=== PATIENT | female | born 1945 | race Caucasian/White ===

== ENCOUNTER → 2020-07-22 | Outpatient (CLI) | payer OTHER ==
[~2020-07-22] MED LIST: ACCOLATE20 MG PO; ALBUTEROL SULF8.5 GM; CARVEDILOL12.5 MG PO; COUMADIN5 MG PO; FERROUS SULFAT325 MG PO; FOLIC ACID1 MG PO; FUROSEMIDE20 MG PO; LEVOTHROID25 MCG PO; NEURONTIN300 MG PO; NEXIUM40 MG PO; PRAVACHOL20 MG PO; PREDNISONE5 MG PO; PRINIVIL20 MG PO; SPIRIVA18 MCG; SYMBICORT 16010.2 GM; ULTRAM50 MG PO; ZANAFLEX4 M1 PO
== END ==
LOC: MAMMO 08:19
PROVIDERS: ATTEND Internal Medicine
DX: Z12.31 Encounter for screening mammogram for malignant neoplasm of breast (principal)
CPT/HCPCS: 77067

== ENCOUNTER → 2020-08-05 | Outpatient (CLI) | payer OTHER | LOC: NM 09:04 | PROVIDERS: ATTEND Internal Medicine | DX: K81.0 Acute cholecystitis (principal) | CPT/HCPCS: 78227; A9537 ==

== ENCOUNTER → 2020-09-02 | Day surgery (SDC) | payer MEDICARE, OTHER ==
[2020-08-31 13:24] LABS: BASOPHILS # (AUTO) 0.1 (0.0-0.1); BASOPHILS % 1.3 % (0.0-1.0); EOSINOPHILS # (AUTO) 0.3 (0.0-0.4); EOSINOPHILS % 5.4 % (0.0-6.0); HEMATOCRIT 31.4 % (34.2-44.1); HEMOGLOBIN 9.8 g/dL (12.0-16.0); LYMPHOCYTES # (AUTO) 1.6 (1.0-3.2); LYMPHOCYTES % 32.9 % (18.0-39.1); MEAN CORPUSCULAR HEMOGLOBIN 31.5 pg (28-32); MEAN CORPUSCULAR HGB CONC 31.2 g/dL (31-35); MONOCYTES # (AUTO) 0.3 (0.2-0.8); MONOCYTES % 7.1 % (4.4-11.3); NEUTROPHILS # (AUTO) 2.6 (2.1-6.9); NEUTROPHILS % 53.1 % (38.7-80.0); PLATELET COUNT 242 x10e3/uL (140-360); RED BLOOD COUNT 3.11 x10e6/uL (3.6-5.1); RED CELL DISTRIBUTION WIDTH 12.7 % (11.7-14.4)
[2020-08-31 13:43] LABS: ALBUMIN 3.9 g/dL (3.5-5.0); ALBUMIN/GLOBULIN RATIO 1.4 (0.8-2.0); ANION GAP 13.6 mmol/L (8-16); CALCIUM 8.8 mg/dL (8.4-10.2); CREATININE, SERUM 1.05 mg/dL (0.57-1.11); POTASSIUM 4.6 mmol/L (3.5-5.1)
[~2020-09-02] MED LIST changes: +ADVAIR 250-501 EACH INH; +ATORVASTATIN CA10 MG PO; +ATROPINE SULFATE 1 MG/ML VIAL ONE; +BUPIVACAINE 0.25% 30ML SDV ONE; +DEXAMETHASONE SOD PHOS INJ 4 MG/ML VIAL ONE; +EPHEDRINE SULFATE INJ 50 MG/ML VIAL ONE; +FENTANYL CITRATE/PF 100MCG/2 ML INJ ONE; +FLUOXETINE HCL20 MG PO; +HYDROCODONE/APAP 7.5MG-325MG 1 EA TAB ONE; +KETOROLAC TROMETHAMINE 30 MG/ML VIAL ONE; +LIDOCAINE HCL 2% LOCAL INJ 5 ML SDV VIAL INJ ONE; +MIDAZOLAM HCL 2 MG/2 ML VIAL ONE; +NEOSTIGMINE 1 MG/ML 10ML VIAL ONE; +ONDANSETRON HCL INJ 2MG/ML 2ML 2 MG/ML VIAL ONE; +POVIDONE IODINE 0.05% 0.05 % ML PO ONE; +PROAIR HFA INH8.5 GM INH; +PROPOFOL IV EMULSION 10 MG/ML 20 ML VIAL ONE; +ROCURONIUM BROMIDE 10 MG/ML 5ML VIAL IV ONE; +SEVOFLURANE INHAL SOLN 250 ML PEN BTL ONE
[2020-09-02 11:55] VITALS: BP 114/57
== END | disposition home or self-care (01) ==
LOC: OR 06:23
PROVIDERS: ATTEND Surgery
DX: K80.10 Calculus of gallbladder with chronic cholecystitis without obstruction (principal); K59.00 Constipation, unspecified; J44.9 Chronic obstructive pulmonary disease, unspecified; I12.9 Hypertensive chronic kidney disease with stage 1 through stage 4 chronic kidney disease, or unspecified chronic kidney disease; N18.9 Chronic kidney disease, unspecified; Z91.040 Latex allergy status; Z88.6 Allergy status to analgesic agent; Z01.810 Encounter for preprocedural cardiovascular examination; Z01.812 Encounter for preprocedural laboratory examination; Z01.818 Encounter for other preprocedural examination; Z20.822 Contact with and (suspected) exposure to COVID-19
CPT/HCPCS: 36415; 71046; 80053; 85025; 88304; 93005; C1766; J0461; J1100; J1885; J2001; J2250; J2405; J2710; J3010; U0002

== ENCOUNTER → 2020-09-30 | Outpatient (CLI) | payer OTHER ==
[~2020-09-30] MED LIST changes: -ATROPINE SULFATE 1 MG/ML VIAL ONE; -BUPIVACAINE 0.25% 30ML SDV ONE; -DEXAMETHASONE SOD PHOS INJ 4 MG/ML VIAL ONE; -EPHEDRINE SULFATE INJ 50 MG/ML VIAL ONE; -FENTANYL CITRATE/PF 100MCG/2 ML INJ ONE; -HYDROCODONE/APAP 7.5MG-325MG 1 EA TAB ONE; -KETOROLAC TROMETHAMINE 30 MG/ML VIAL ONE; -LIDOCAINE HCL 2% LOCAL INJ 5 ML SDV VIAL INJ ONE; -MIDAZOLAM HCL 2 MG/2 ML VIAL ONE; -NEOSTIGMINE 1 MG/ML 10ML VIAL ONE; -ONDANSETRON HCL INJ 2MG/ML 2ML 2 MG/ML VIAL ONE; -POVIDONE IODINE 0.05% 0.05 % ML PO ONE; -PROPOFOL IV EMULSION 10 MG/ML 20 ML VIAL ONE; -ROCURONIUM BROMIDE 10 MG/ML 5ML VIAL IV ONE; -SEVOFLURANE INHAL SOLN 250 ML PEN BTL ONE
== END ==
LOC: MRI 08:16
PROVIDERS: ATTEND Internal Medicine
DX: M47.27 Other spondylosis with radiculopathy, lumbosacral region (principal)
CPT/HCPCS: 72148; 72195

== ENCOUNTER → 2020-12-31 | Outpatient (CLI) | payer OTHER ==
[~2020-12-31] MED LIST changes: +IOPAMIDOL 370 MG/ML 200 ML INFUS..BTL INJ ONE; +SODIUM CHLORIDE 0.9% 500ML 500 ML ONE; +SODIUM CHLORIDE 0.9% 50ML 50 ML ONE
== END ==
LOC: CT 07:30
PROVIDERS: ATTEND Internal Medicine
DX: R06.02 Shortness of breath (principal)
CPT/HCPCS: 71260; 96360; J7040; Q9967

== ENCOUNTER 2021-01-30 09:56 | Inpatient (IN) | payer MEDICARE, OTHER ==
[~2021-01-30] VITALS: Ht 162.6 cm; Wt 89.0 kg
[~2021-01-30 09:56] MED LIST changes: -IOPAMIDOL 370 MG/ML 200 ML INFUS..BTL INJ ONE; -SODIUM CHLORIDE 0.9% 500ML 500 ML ONE; -SODIUM CHLORIDE 0.9% 50ML 50 ML ONE
[2021-01-30] MEDS ORDERED: SODIUM CHLORIDE 0.9% 1000ML 1,000 ML IV STA (10:41)
[2021-01-30] MEDS ORDERED: CEFTRIAXONE 1 GM in SODIUM CHLORIDE 0.9% 50ML 50 ML IV ONE (11:15)
[2021-01-30 11:25] LABS: BASOPHILS % 0.3 % (0.0-1.0); EOSINOPHILS % 0.3 % (0.0-6.0); HEMATOCRIT 31.9 % (34.2-44.1); HEMOGLOBIN 9.8 g/dL (12.0-16.0); LYMPHOCYTES # (AUTO) 0.6 (1.0-3.2); LYMPHOCYTES % 4.6 % (18.0-39.1); MEAN CORPUSCULAR HEMOGLOBIN 31.3 pg (28-32); MEAN CORPUSCULAR HGB CONC 30.7 g/dL (31-35); MEAN CORPUSCULAR VOLUME 101.9 fL (81-99); MONOCYTES # (AUTO) 0.4 (0.2-0.8); MONOCYTES % 2.9 % (4.4-11.3); NEUTROPHILS # (AUTO) 11.5 (2.1-6.9); NEUTROPHILS % 91.3 % (38.7-80.0); PLATELET COUNT 264 x10e3/uL (140-360); RED BLOOD COUNT 3.13 x10e6/uL (3.6-5.1); RED CELL DISTRIBUTION WIDTH 13.1 % (11.7-14.4)
[2021-01-30] MEDS ORDERED: ACETAMINOPHEN 325 MG TAB PO ONE (11:30)
[2021-01-30 11:34] LABS: INR 0.94; PARTIAL THROMBOPLASTIN TIME 27.3 seconds (23.8-35.5); PROTHROMBIN TIME 12.8 seconds (11.9-14.5)
[2021-01-30 11:42] LABS: ALBUMIN 3.9 g/dL (3.5-5.0); ALBUMIN/GLOBULIN RATIO 1.3 (0.8-2.0); ANION GAP 16.3 mmol/L (8-16); CALCIUM 9.2 mg/dL (8.4-10.2); CREATININE, SERUM 1.07 mg/dL (0.57-1.11); MAGNESIUM 1.7 MG/DL (1.3-2.1); POTASSIUM 4.3 mmol/L (3.5-5.1)
[2021-01-30 11:49] LABS: CREATINE KINASE MB 0.5 ng/mL (0-5.0)
[2021-01-30 13:25] LABS: CLARITY,URINE CLEAR (CLEAR); COLOR,URINE STRAW (YELLOW); KETONES,URINE NEGATIVE (NEGATIVE); LEUKOCYTE ESTERASE ,URINE NEGATIVE (NEGATIVE); NITRITE,URINE NEGATIVE (NEGATIVE); PROTEIN,URINE DIPSTICK NEGATIVE (NEGATIVE); URINE UROBILINOGEN 0.2 mg/dL (0.2 - 1)
[2021-01-30 13:39] LABS: RBC,URINE 0-5 /HPF (0-5); WBC,URINE (MAN) 0-5 /HPF (0-5)
[2021-01-30] MEDS ORDERED: IPRATROPIUM BROMIDE 0.02% 2.5 ML NEB NEB PRN (15:30)
[2021-01-30] MEDS ORDERED: ALBUTEROL SULF 0.083% NEB SOLN 3 ML NEB NEB PRN (15:30)
[2021-01-30] MEDS ORDERED: SODIUM CHLORIDE 0.9% 1000ML 1,000 ML IV SCH (15:30)
[2021-01-30 17:49] VITALS: BP 146/68
[2021-01-30] MEDS ORDERED: SODIUM CHLORIDE 0.9% 50ML 50 ML ONE (18:32)
[2021-01-30] MEDS ORDERED: IOPAMIDOL 370 MG/ML 200 ML INFUS..BTL INJ ONE (18:33)
[2021-01-30 19:22] VITALS: BP 146/68
[2021-01-30 19:28] VITALS: BP 146/68
[2021-01-30 19:30] VITALS: BP 116/60
[2021-01-30 19:31] LABS: CREATINE KINASE MB 0.5 ng/mL (0-5.0)
[2021-01-30] MEDS ORDERED: LEVOTHYROXINE50 MCG PO (19:59)
[2021-01-30] MEDS ORDERED: ZESTRIL2.5 MG PO (20:18)
[2021-01-30 21:00] VITALS: BP 116/60
[2021-01-31] VITALS (10 sets, daily range): BP systolic 95–142; BP diastolic 40–76
[2021-01-31] MEDS ORDERED: DIPHENHYDRAMINE HCL 25 MG CAP PO PRN (01:30)
[2021-01-31] MEDS ORDERED: CHLORASEPTIC SPRAY 177 ML BTL MM PRN (01:30)
[2021-01-31] MEDS ORDERED: POTASSIUM CHLORIDE 20 MEQ TAB CR PO PRN (01:30)
[2021-01-31] MEDS ORDERED: DEXTROSE 50% SYRINGE 50 ML IV PRN (01:30)
[2021-01-31] MEDS ORDERED: DOCUSATE SODIUM 100 MG CAP PO PRN (01:30)
[2021-01-31] MEDS: GABAPENTIN 300 MG CAP PO SCH ×3 (06:04→20:22)
[2021-01-31] MEDS: LEVOTHYROXINE SODIUM 50 MCG TAB PO SCH (06:04)
[2021-01-31 06:42] LABS: BASOPHILS % 0.5 % (0.0-1.0); EOSINOPHILS # (AUTO) 0.2 (0.0-0.4); EOSINOPHILS % 1.8 % (0.0-6.0); HEMATOCRIT 25.9 % (34.2-44.1); HEMOGLOBIN 8.1 g/dL (12.0-16.0); LYMPHOCYTES # (AUTO) 1.7 (1.0-3.2); LYMPHOCYTES % 19.6 % (18.0-39.1); MEAN CORPUSCULAR HEMOGLOBIN 31.6 pg (28-32); MEAN CORPUSCULAR HGB CONC 31.3 g/dL (31-35); MEAN CORPUSCULAR VOLUME 101.2 fL (81-99); MONOCYTES # (AUTO) 0.4 (0.2-0.8); MONOCYTES % 4.6 % (4.4-11.3); NEUTROPHILS # (AUTO) 6.2 (2.1-6.9); NEUTROPHILS % 73.1 % (38.7-80.0); PLATELET COUNT 229 x10e3/uL (140-360); RED BLOOD COUNT 2.56 x10e6/uL (3.6-5.1); RED CELL DISTRIBUTION WIDTH 13.2 % (11.7-14.4)
[2021-01-31 07:10] LABS: CREATINE KINASE 81 IU/L (29-168)
[2021-01-31 07:31] LABS: ALBUMIN 3.2 g/dL (3.5-5.0); ALBUMIN/GLOBULIN RATIO 1.1 (0.8-2.0); ANION GAP 13.9 mmol/L (8-16); CALCIUM 8.8 mg/dL (8.4-10.2); CREATININE, SERUM 0.79 mg/dL (0.57-1.11); POTASSIUM 3.9 mmol/L (3.5-5.1)
[2021-01-31] MEDS ORDERED: MIDODRINE 2.5 MG TAB PO SCH (08:00)
[2021-01-31] MEDS ORDERED: PANTOPRAZOLE SOD 40 MG TABEC PO SCH (09:00)
[2021-01-31] MEDS ORDERED: SALMETEROL/FLUTICASONE 250/50 INH SCH (09:00)
[2021-01-31] MEDS: PANTOPRAZOLE SOD 40 MG TABEC PO SCH (09:22)
[2021-01-31] MEDS: FOLIC ACID 1 MG TAB PO SCH (09:22)
[2021-01-31] MEDS: FERROUS SULFATE 325 MG TAB PO SCH ×2 (09:22→16:37)
[2021-01-31] MEDS: FLUOXETINE HCL 20 MG CAP PO SCH (09:22)
[2021-01-31] MEDS ORDERED: ACETAMINOPHEN 325 MG TAB ONE (09:25)
[2021-01-31] MEDS: CEFTRIAXONE 1 GM in SODIUM CHLORIDE 0.9% 50ML 50 ML IV SCH (11:30)
[2021-01-31] MEDS: ENOXAPARIN SOD INJ 40 MG/0.4 ML SYR SC SCH (16:37)
[2021-01-31] MEDS: ATORVASTATIN 10 MG TAB PO SCH (20:22)
[2021-01-31] MEDS: LISINOPRIL 2.5 MG TAB PO SCH (20:22)
[2021-01-31] MEDS ORDERED: MELATONIN 5 MG TABLET PO PRN (21:00)
[2021-02-01] VITALS (7 sets, daily range): BP systolic 101–136; BP diastolic 62–75
[2021-02-01] MEDS: LEVOTHYROXINE SODIUM 50 MCG TAB PO SCH (06:35)
[2021-02-01] MEDS: PANTOPRAZOLE SOD 40 MG TABEC PO SCH (07:30)
[2021-02-01] MEDS: ACETAMINOPHEN 325 MG TAB PO PRN ×2 (08:30→15:02)
[2021-02-01] MEDS: FERROUS SULFATE 325 MG TAB PO SCH ×2 (09:00→17:00)
[2021-02-01] MEDS: GABAPENTIN 300 MG CAP PO SCH ×3 (09:00→21:09)
[2021-02-01] MEDS: FOLIC ACID 1 MG TAB PO SCH (09:00)
[2021-02-01] MEDS: CEFTRIAXONE 1 GM in SODIUM CHLORIDE 0.9% 50ML 50 ML IV SCH (09:00)
[2021-02-01] MEDS: FLUOXETINE HCL 20 MG CAP PO SCH (09:00)
[2021-02-01 09:15] LABS: BASOPHILS % 0.5 % (0.0-1.0); EOSINOPHILS # (AUTO) 0.1 (0.0-0.4); HEMATOCRIT 28.1 % (34.2-44.1); HEMOGLOBIN 8.9 g/dL (12.0-16.0); MEAN CORPUSCULAR HEMOGLOBIN 31.8 pg (28-32); MEAN CORPUSCULAR HGB CONC 31.7 g/dL (31-35); MEAN CORPUSCULAR VOLUME 100.4 fL (81-99); MONOCYTES # (AUTO) 0.4 (0.2-0.8); MONOCYTES % 5.5 % (4.4-11.3); NEUTROPHILS # (AUTO) 4.9 (2.1-6.9); NEUTROPHILS % 76.5 % (38.7-80.0); PLATELET COUNT 257 x10e3/uL (140-360); RED CELL DISTRIBUTION WIDTH 12.9 % (11.7-14.4)
[2021-02-01 09:47] LABS: ANION GAP 13.1 mmol/L (8-16); CALCIUM 9.2 mg/dL (8.4-10.2); CREATININE, SERUM 0.92 mg/dL (0.57-1.11); POTASSIUM 4.1 mmol/L (3.5-5.1)
[2021-02-01] MEDS: ENOXAPARIN SOD INJ 40 MG/0.4 ML SYR SC SCH (17:00)
[2021-02-01] MEDS: LISINOPRIL 2.5 MG TAB PO SCH (21:09)
[2021-02-01] MEDS: ATORVASTATIN 10 MG TAB PO SCH (21:09)
[2021-02-02 00:18] VITALS: BP 105/70
[2021-02-02 03:00] VITALS: BP 105/70
[2021-02-02 04:00] VITALS: BP 146/76
[2021-02-02] MEDS: LEVOTHYROXINE SODIUM 50 MCG TAB PO SCH (05:29)
[2021-02-02 05:34] LABS: ANION GAP 14.3 mmol/L (8-16); CALCIUM 9.4 mg/dL (8.4-10.2); CREATININE, SERUM 0.85 mg/dL (0.57-1.11); POTASSIUM 4.3 mmol/L (3.5-5.1)
[2021-02-02 08:22] VITALS: BP 118/52
[2021-02-02 08:49] VITALS: BP 118/52
[2021-02-02] MEDS: CEFTRIAXONE 1 GM in SODIUM CHLORIDE 0.9% 50ML 50 ML IV SCH (09:38)
[2021-02-02] MEDS: PANTOPRAZOLE SOD 40 MG TABEC PO SCH (09:38)
[2021-02-02] MEDS: GABAPENTIN 300 MG CAP PO SCH (09:39)
[2021-02-02] MEDS: FLUOXETINE HCL 20 MG CAP PO SCH (09:39)
[2021-02-02] MEDS: FOLIC ACID 1 MG TAB PO SCH (09:39)
[2021-02-02] MEDS: FERROUS SULFATE 325 MG TAB PO SCH (09:39)
[2021-02-02] MEDS: ACETAMINOPHEN 325 MG TAB PO PRN (11:44)
[2021-02-02 13:18] VITALS: BP 115/64
[2021-02-03] MEDS ORDERED: AZITHROMYCIN 250 MG TAB PO SCH (11:00)
== END 2021-02-02 15:04 | disposition home or self-care (01) | DRG 190 ==
LOC: ER 10:52 → ERHOLD 10:55 → MED/SURG2 17:47
PROVIDERS: ADMIT Internal Medicine; ATTEND Internal Medicine
DX: J44.0 Chronic obstructive pulmonary disease with (acute) lower respiratory infection (principal); J18.9 Pneumonia, unspecified organism; J84.10 Pulmonary fibrosis, unspecified; I10 Essential (primary) hypertension; K21.9 Gastro-esophageal reflux disease without esophagitis; E78.5 Hyperlipidemia, unspecified; M79.7 Fibromyalgia; F32.9 Major depressive disorder, single episode, unspecified; Z86.718 Personal history of other venous thrombosis and embolism; Z87.891 Personal history of nicotine dependence; Z88.5 Allergy status to narcotic agent; Z91.040 Latex allergy status; Z98.84 Bariatric surgery status; Z20.822 Contact with and (suspected) exposure to COVID-19
CPT/HCPCS: 36415; 70450; 71045; 71260; 80048; 80053; 81001; 82550; 82553; 83605; 83735; 83880; 84484; 85025; 85379; 85610; 85730; 87040; 87086; 87400; 93005; 94660; 97139; 99251; 99284; J0456; J0696; J1650; J7030; J7050; Q9967; U0002

== ENCOUNTER → 2022-02-04 | Outpatient (CLI) | payer OTHER ==
[~2022-02-04] MED LIST changes: +LEVOTHYROXINE50 MCG PO; +ZESTRIL2.5 MG PO
== END ==
LOC: CT 09:34
PROVIDERS: ATTEND Internal Medicine Pulmonary Disease
DX: J84.10 Pulmonary fibrosis, unspecified (principal)
CPT/HCPCS: 71250

== ENCOUNTER → 2022-02-08 | Outpatient (CLI) | payer OTHER | LOC: MAMMO 08:48 | PROVIDERS: ATTEND Internal Medicine | DX: Z12.31 Encounter for screening mammogram for malignant neoplasm of breast (principal) ==

== ENCOUNTER → 2022-08-15 | Day surgery (SDC) | payer MEDICARE, OTHER ==
[2022-08-08 09:46] LABS: BASOPHILS # (AUTO) 0.1 (0.0-0.1); BASOPHILS % 1.3 % (0.0-1.0); EOSINOPHILS # (AUTO) 0.3 (0.0-0.4); EOSINOPHILS % 7.1 % (0.0-6.0); HEMATOCRIT 27.8 % (34.2-44.1); HEMOGLOBIN 8.7 g/dL (12.0-16.0); LYMPHOCYTES # (AUTO) 1.4 (1.0-3.2); LYMPHOCYTES % 36.3 % (18.0-39.1); MEAN CORPUSCULAR HEMOGLOBIN 32.6 pg (28-32); MEAN CORPUSCULAR HGB CONC 31.3 g/dL (31-35); MEAN CORPUSCULAR VOLUME 104.1 fL (81-99); MONOCYTES # (AUTO) 0.2 (0.2-0.8); MONOCYTES % 6.1 % (4.4-11.3); NEUTROPHILS # (AUTO) 1.9 (2.1-6.9); NEUTROPHILS % 48.9 % (38.7-80.0); PLATELET COUNT 247 x10e3/uL (140-360); RED BLOOD COUNT 2.67 x10e6/uL (3.6-5.1); RED CELL DISTRIBUTION WIDTH 12.7 % (11.7-14.4)
[~2022-08-15] MED LIST changes: +ASPIRIN CHEW81 MG PO; +FENTANYL CITRATE/PF 100MCG/2 ML INJ ONE; +LACTATED RINGER'S 1,000 ML ONE; +LIDOCAINE HCL 2% LOCAL INJ 5 ML SDV VIAL INJ ONE; +MULTI-VITAMIN1 EACH PO; +PROPOFOL IV EMULSION 10 MG/ML 20 ML VIAL ONE; +STOOL SOFTENER50 MG PO; +TYLENOL325 MG PO
[2022-08-15 12:45] VITALS: BP 101/61
== END | disposition home or self-care (01) ==
LOC: OR 08:25
PROVIDERS: ATTEND Internal Medicine Gastroenterology
DX: K21.9 Gastro-esophageal reflux disease without esophagitis (principal); Z86.010 Personal history of colon polyps; K29.50 Unspecified chronic gastritis without bleeding; K44.9 Diaphragmatic hernia without obstruction or gangrene; K64.1 Second degree hemorrhoids; Z90.3 Acquired absence of stomach [part of]; E66.3 Overweight; I10 Essential (primary) hypertension; E11.9 Type 2 diabetes mellitus without complications; Z88.2 Allergy status to sulfonamides; Z91.040 Latex allergy status; Z01.810 Encounter for preprocedural cardiovascular examination; Z01.812 Encounter for preprocedural laboratory examination; Z79.899 Other long term (current) drug therapy; Z79.82 Long term (current) use of aspirin
CPT/HCPCS: 36415; 43239; 45378; 85025; 88305; 88312; 88342; 93005; J2001

== ENCOUNTER → 2022-11-11 | Outpatient (CLI) | payer OTHER ==
[~2022-11-11] MED LIST changes: -FENTANYL CITRATE/PF 100MCG/2 ML INJ ONE; +IOPAMIDOL 370 MG/ML 100 ML INFUS..BTL INJ ONE; -LACTATED RINGER'S 1,000 ML ONE; -LIDOCAINE HCL 2% LOCAL INJ 5 ML SDV VIAL INJ ONE; -PROPOFOL IV EMULSION 10 MG/ML 20 ML VIAL ONE
[2022-11-11 11:57] LABS: CREATININE, SERUM 0.95 mg/dL (0.57-1.11)
== END ==
LOC: CT 10:59
PROVIDERS: ATTEND Internal Medicine
DX: J84.10 Pulmonary fibrosis, unspecified (principal)
CPT/HCPCS: 36415; 71260; 82565; 84520; Q9967

== ENCOUNTER 2023-03-09 02:31 | Inpatient (IN) | payer OTHER ==
[~2023-03-09] VITALS: Ht 162.6 cm; Wt 67.1 kg
[2023-03-09] VITALS (10 sets, daily range): BP systolic 96–104; BP diastolic 43–62; PULSE 74–88; RESP 16–19; TEMP 100.2–101.3; O2SAT 95–100
[~2023-03-09 02:31] MED LIST changes: +FOLIC ACID0.4 MG PO; +HYDROCHLOROTHIA25 MG PO; -IOPAMIDOL 370 MG/ML 100 ML INFUS..BTL INJ ONE; +LOSARTAN POTAS100 MG PO; +LOSARTAN POTASS25 MG PO; +MIRALAX17 GM PO; +OXYBUTYNIN CHLOR5 M1 PO; +SENOKOT-S TABL1 EACH PO; +ULTRAM 50MG50 MG PO; +ZITHROMAX250 MG PO
[2023-03-09] MEDS ORDERED: ONDANSETRON HCL INJ 2MG/ML 2ML 2 MG/ML VIAL IV STA (02:44)
[2023-03-09] MEDS ORDERED: SODIUM CHLORIDE 0.9% 1000ML 1,000 ML IV ONE (02:45)
[2023-03-09] MEDS ORDERED: ACETAMINOPHEN 325 MG TAB PO ONE (02:45)
[2023-03-09] MEDS ORDERED: ONDANSETRON HCL INJ 2MG/ML 2ML 2 MG/ML VIAL ONE (02:51)
[2023-03-09 03:08] LABS: BASOPHILS % 0.8 % (0.0-1.0); EOSINOPHILS # (AUTO) 0.1 (0.0-0.4); HEMATOCRIT 28.5 % (34.2-44.1); HEMOGLOBIN 9.4 g/dL (12.0-16.0); LYMPHOCYTES # (AUTO) 0.5 (1.0-3.2); LYMPHOCYTES % 17.9 % (18.0-39.1); MEAN CORPUSCULAR HEMOGLOBIN 33.3 pg (28-32); MEAN CORPUSCULAR VOLUME 101.1 fL (81-99); MONOCYTES # (AUTO) 0.1 (0.2-0.8); MONOCYTES % 3.6 % (4.4-11.3); NEUTROPHILS # (AUTO) 1.9 (2.1-6.9); NEUTROPHILS % 75.3 % (38.7-80.0); PLATELET COUNT 255 x10e3/uL (140-360); RED BLOOD COUNT 2.82 x10e6/uL (3.6-5.1); RED CELL DISTRIBUTION WIDTH 14.4 % (11.7-14.4); WHITE BLOOD COUNT 2.51 x10e3/uL (4.8-10.8)
[2023-03-09 03:21] LABS: ALBUMIN 3.9 g/dL (3.5-5.0); ALBUMIN/GLOBULIN RATIO 1.4 (0.8-2.0); ANION GAP 16.1 mmol/L (8-16); CALCIUM 9.5 mg/dL (8.4-10.2); CREATININE, SERUM 1.08 mg/dL (0.57-1.11); POTASSIUM 5.1 mmol/L (3.5-5.1)
[2023-03-09 03:49] LABS: COLOR,URINE YELLOW (YELLOW)
[2023-03-09 03:50] LABS: BACTERIA,URINE FEW /HPF; CLARITY,URINE CLEAR (CLEAR); EPITHELIAL CELLS,URINE FEW /LPF; KETONES,URINE NEGATIVE (NEGATIVE); LEUKOCYTE ESTERASE ,URINE NEGATIVE (NEGATIVE); NITRITE,URINE NEGATIVE (NEGATIVE); PROTEIN,URINE DIPSTICK NEGATIVE (NEGATIVE); RBC,URINE 0-5 /HPF (0-5); URINE UROBILINOGEN 0.2 mg/dL (0.2 - 1); WBC,URINE (MAN) 0-5 /HPF (0-5)
[2023-03-09] MEDS ORDERED: ONDANSETRON HCL INJ 2MG/ML 2ML 2 MG/ML VIAL IV PRN (04:00)
[2023-03-09] MEDS: SODIUM CHLORIDE 0.9% 1000ML 1,000 ML IV SCH ×2 (05:30→14:37)
[2023-03-09] MEDS ORDERED: TRELEGY ELLIPT1 EACH (05:59)
[2023-03-09 07:37] LABS: CREATINE KINASE 110 IU/L (29-168)
[2023-03-09] MEDS: IPRATROPIUM BROMIDE 0.02% 2.5 ML NEB NEB SCH ×4 (07:43→19:05)
[2023-03-09] MEDS: ALBUTEROL SULF 0.083% NEB SOLN 3 ML NEB NEB SCH ×5 (07:43→19:04)
[2023-03-09] MEDS ORDERED: TRAMADOL HCL 50 MG TAB PO PRN (11:00)
[2023-03-09] MEDS: GABAPENTIN 300 MG CAP PO SCH ×2 (14:36→21:18)
[2023-03-09] MEDS: ACETAMINOPHEN 325 MG TAB PO PRN (17:01)
[2023-03-09] MEDS: SALMETEROL XINAF/FLUTICASONE 250/50 MCG INHALER INH SCH (19:24)
[2023-03-10] VITALS (15 sets, daily range): BP systolic 115–151; BP diastolic 49–94; PULSE 70–91; RESP 18–20; TEMP 98.3–101.8; O2SAT 94–100
[2023-03-10] MEDS: IPRATROPIUM BROMIDE 0.02% 2.5 ML NEB NEB SCH ×3 (00:11→19:06)
[2023-03-10] MEDS: ALBUTEROL SULF 0.083% NEB SOLN 3 ML NEB NEB SCH ×7 (00:12→23:18)
[2023-03-10] MEDS: SODIUM CHLORIDE 0.9% 1000ML 1,000 ML IV SCH ×2 (00:54→10:25)
[2023-03-10 05:25] LABS: BASOPHILS % 0.3 % (0.0-1.0); EOSINOPHILS % 0.5 % (0.0-6.0); HEMATOCRIT 23.4 % (34.2-44.1); HEMOGLOBIN 7.5 g/dL (12.0-16.0); LYMPHOCYTES # (AUTO) 0.8 (1.0-3.2); MEAN CORPUSCULAR HEMOGLOBIN 33.3 pg (28-32); MEAN CORPUSCULAR HGB CONC 32.1 g/dL (31-35); MONOCYTES # (AUTO) 0.4 (0.2-0.8); MONOCYTES % 4.4 % (4.4-11.3); NEUTROPHILS # (AUTO) 7.5 (2.1-6.9); NEUTROPHILS % 85.1 % (38.7-80.0); PLATELET COUNT 217 x10e3/uL (140-360); RED BLOOD COUNT 2.25 x10e6/uL (3.6-5.1); RED CELL DISTRIBUTION WIDTH 14.8 % (11.7-14.4)
[2023-03-10 05:43] LABS: ALBUMIN 2.8 g/dL (3.5-5.0); ALBUMIN/GLOBULIN RATIO 1.3 (0.8-2.0); ANION GAP 10.2 mmol/L (8-16); CALCIUM 8.3 mg/dL (8.4-10.2); CREATININE, SERUM 0.86 mg/dL (0.57-1.11); POTASSIUM 4.2 mmol/L (3.5-5.1)
[2023-03-10] MEDS: LEVOTHYROXINE SODIUM 50 MCG TAB PO SCH (06:00)
[2023-03-10 06:18] LABS: MAGNESIUM 1.7 MG/DL (1.3-2.1); PHOSPHORUS 2.7 MG/DL (2.3-4.7)
[2023-03-10 06:26] LABS: THYROID STIMULATING HORMONE 1.372 uIU/mL (0.350-4.940)
[2023-03-10] MEDS: METOCLOPRAMIDE HCL 10 MG/2ML VIAL IV SCH ×3 (06:42→17:51)
[2023-03-10] MEDS: FOLIC ACID 1 MG TAB PO SCH ×2 (08:23→10:24)
[2023-03-10] MEDS: MULTIVITAMINS/MINERALS TAB PO SCH ×2 (08:23→10:24)
[2023-03-10] MEDS: FLUOXETINE HCL 20 MG CAP PO SCH ×2 (08:30→10:25)
[2023-03-10] MEDS: GABAPENTIN 300 MG CAP PO SCH ×4 (08:30→21:20)
[2023-03-10] MEDS ORDERED: PANTOPRAZOLE SOD 40 MG TABEC PO SCH (09:00)
[2023-03-10] MEDS ORDERED: ACETAMINOPHEN 1000 MG/100 ML IV PRN (10:15)
[2023-03-10] MEDS ORDERED: MAGNESIUM SULFATE 2GM/50ML IV ONE (10:15)
[2023-03-10] MEDS: ACETAMINOPHEN 325 MG TAB PO PRN (10:21)
[2023-03-10] MEDS ORDERED: MAGNESIUM SULFATE 2GM/50ML 50 ML IV ONE (11:00)
[2023-03-10 17:12] LABS: ANION GAP 10.3 mmol/L (8-16); CALCIUM 8.5 mg/dL (8.4-10.2); CREATININE, SERUM 0.9 mg/dL (0.57-1.11); POTASSIUM 4.3 mmol/L (3.5-5.1)
[2023-03-11] VITALS (14 sets, daily range): BP systolic 113–151; BP diastolic 56–70; PULSE 78–96; RESP 13–20; TEMP 98.6–99.9; O2SAT 93–100
[2023-03-11] MEDS: METOCLOPRAMIDE HCL 10 MG/2ML VIAL IV SCH ×5 (00:13→23:54)
[2023-03-11] MEDS: ACETAMINOPHEN 325 MG TAB PO PRN ×3 (00:23→21:14)
[2023-03-11] MEDS: ALBUTEROL SULF 0.083% NEB SOLN 3 ML NEB NEB SCH ×6 (02:47→22:55)
[2023-03-11] MEDS: IPRATROPIUM BROMIDE 0.02% 2.5 ML NEB NEB SCH ×4 (02:48→22:56)
[2023-03-11] MEDS: LEVOTHYROXINE SODIUM 50 MCG TAB PO SCH (06:03)
[2023-03-11] MEDS: SODIUM CHLORIDE 0.9% 1000ML 1,000 ML IV SCH (06:33)
[2023-03-11] MEDS: SALMETEROL XINAF/FLUTICASONE 250/50 MCG INHALER INH SCH (07:39)
[2023-03-11] MEDS: MULTIVITAMINS/MINERALS TAB PO SCH (09:07)
[2023-03-11] MEDS: GABAPENTIN 300 MG CAP PO SCH ×3 (09:07→21:07)
[2023-03-11] MEDS: FOLIC ACID 1 MG TAB PO SCH (09:07)
[2023-03-11] MEDS: FLUOXETINE HCL 20 MG CAP PO SCH (09:07)
[2023-03-11] MEDS: IRON SUCROSE 100 MG in SODIUM CHLORIDE 0.9% 100 ML IV SCH (11:31)
[2023-03-12] VITALS (13 sets, daily range): BP systolic 122–149; BP diastolic 54–72; PULSE 72–98; RESP 18–20; TEMP 98.6–100.3; O2SAT 92–99
[2023-03-12] MEDS: ALBUTEROL SULF 0.083% NEB SOLN 3 ML NEB NEB SCH ×5 (02:48→19:40)
[2023-03-12 05:36] LABS: CALCIUM 8.9 mg/dL (8.4-10.2); CREATININE, SERUM 0.76 mg/dL (0.57-1.11)
[2023-03-12] MEDS: LEVOTHYROXINE SODIUM 50 MCG TAB PO SCH (06:34)
[2023-03-12] MEDS: METOCLOPRAMIDE HCL 10 MG/2ML VIAL IV SCH ×3 (06:34→18:00)
[2023-03-12] MEDS: SALMETEROL XINAF/FLUTICASONE 250/50 MCG INHALER INH SCH ×2 (06:38→07:20)
[2023-03-12 06:59] LABS: BASOPHILS % 0.3 % (0.0-1.0); EOSINOPHILS # (AUTO) 0.3 (0.0-0.4); EOSINOPHILS % 5.4 % (0.0-6.0); HEMOGLOBIN 7.4 g/dL (12.0-16.0); LYMPHOCYTES # (AUTO) 0.6 (1.0-3.2); LYMPHOCYTES % 9.8 % (18.0-39.1); MEAN CORPUSCULAR HEMOGLOBIN 33.8 pg (28-32); MEAN CORPUSCULAR HGB CONC 32.3 g/dL (31-35); MEAN CORPUSCULAR VOLUME 104.6 fL (81-99); MONOCYTES # (AUTO) 0.3 (0.2-0.8); MONOCYTES % 4.6 % (4.4-11.3); NEUTROPHILS # (AUTO) 4.9 (2.1-6.9); NEUTROPHILS % 79.6 % (38.7-80.0); PLATELET COUNT 242 x10e3/uL (140-360); RED BLOOD COUNT 2.19 x10e6/uL (3.6-5.1); RED CELL DISTRIBUTION WIDTH 14.3 % (11.7-14.4); WHITE BLOOD COUNT 6.12 x10e3/uL (4.8-10.8)
[2023-03-12 07:16] LABS: HEMATOCRIT 22.9 % (34.2-44.1)
[2023-03-12] MEDS: IPRATROPIUM BROMIDE 0.02% 2.5 ML NEB NEB SCH ×3 (07:21→19:41)
[2023-03-12] MEDS: FOLIC ACID 1 MG TAB PO SCH (08:51)
[2023-03-12] MEDS: MULTIVITAMINS/MINERALS TAB PO SCH (08:52)
[2023-03-12] MEDS: GABAPENTIN 300 MG CAP PO SCH ×3 (08:52→21:54)
[2023-03-12] MEDS: FLUOXETINE HCL 20 MG CAP PO SCH (08:52)
[2023-03-12] MEDS: IRON SUCROSE 100 MG in SODIUM CHLORIDE 0.9% 100 ML IV SCH (08:54)
[2023-03-12] MEDS: ACETAMINOPHEN 325 MG TAB PO PRN ×2 (08:56→17:29)
[2023-03-13] VITALS (9 sets, daily range): BP systolic 142–159; BP diastolic 66–94; PULSE 71–96; RESP 18–22; TEMP 99.6–99.9; O2SAT 92–99
[2023-03-13] MEDS: METOCLOPRAMIDE HCL 10 MG/2ML VIAL IV SCH ×3 (00:13→12:03)
[2023-03-13] MEDS: IPRATROPIUM BROMIDE 0.02% 2.5 ML NEB NEB SCH ×3 (03:11→10:39)
[2023-03-13] MEDS: ALBUTEROL SULF 0.083% NEB SOLN 3 ML NEB NEB SCH ×4 (03:12→10:38)
[2023-03-13] MEDS: LEVOTHYROXINE SODIUM 50 MCG TAB PO SCH (05:40)
[2023-03-13] MEDS: ACETAMINOPHEN 325 MG TAB PO PRN (08:01)
[2023-03-13] MEDS: FLUOXETINE HCL 20 MG CAP PO SCH (09:29)
[2023-03-13] MEDS: MULTIVITAMINS/MINERALS TAB PO SCH (09:29)
[2023-03-13] MEDS: IRON SUCROSE 100 MG in SODIUM CHLORIDE 0.9% 100 ML IV SCH (09:29)
[2023-03-13] MEDS: GABAPENTIN 300 MG CAP PO SCH (09:29)
[2023-03-13] MEDS: FOLIC ACID 1 MG TAB PO SCH (09:29)
[2023-03-13] MEDS ORDERED: REGLAN5 MG PO (11:18)
[2023-03-13] MEDS ORDERED: FLAGYL375 MG PO (11:19)
[2023-03-13] MEDS ORDERED: CIPRO500 MG PO (11:20)
== END 2023-03-13 13:29 | disposition home health service (06) | DRG 871 ==
LOC: ER 02:43 → ERHOLD 03:51 → MED/SURG3 04:44
PROVIDERS: ADMIT Internal Medicine; ATTEND Internal Medicine
DX: A41.9 Sepsis, unspecified organism (principal); J18.8 Other pneumonia, unspecified organism; J69.0 Pneumonitis due to inhalation of food and vomit; J96.01 Acute respiratory failure with hypoxia; J44.0 Chronic obstructive pulmonary disease with (acute) lower respiratory infection; J44.1 Chronic obstructive pulmonary disease with (acute) exacerbation; E87.20 Acidosis, unspecified; R65.20 Severe sepsis without septic shock; K21.9 Gastro-esophageal reflux disease without esophagitis; D50.9 Iron deficiency anemia, unspecified; I48.91 Unspecified atrial fibrillation; E78.5 Hyperlipidemia, unspecified; M79.7 Fibromyalgia; J84.10 Pulmonary fibrosis, unspecified; D64.9 Anemia, unspecified; G62.9 Polyneuropathy, unspecified; Z79.890 Hormone replacement therapy; Z98.84 Bariatric surgery status; Z79.899 Other long term (current) drug therapy; Z87.891 Personal history of nicotine dependence; Z87.01 Personal history of pneumonia (recurrent); Z87.898 Personal history of other specified conditions; Z91.040 Latex allergy status
CPT/HCPCS: 36415; 71045; 80048; 80053; 81001; 82550; 82607; 83036; 83540; 83605; 83735; 84100; 84443; 84466; 84484; 85025; 87040; 87086; 87400; 93005; 94664; 94799; 99285; J0696; J1756; J2405; J2543; J2765; J3475; J7030; J7050; U0002

== ENCOUNTER 2024-04-13 03:39 | Inpatient (IN) | payer MEDICARE, OTHER ==
[~2024-04-13] VITALS: Ht 162.6 cm; Wt 68.0 kg
[2024-04-13] VITALS (11 sets, daily range): BP systolic 109–126; BP diastolic 57–82; PULSE 71–102; RESP 18–20; TEMP 98.1–99.3; O2SAT 95–100
[~2024-04-13 03:39] MED LIST changes: +CIPRO500 MG PO; +FLAGYL375 MG PO; +REGLAN5 MG PO; +TRELEGY ELLIPT1 EACH
[2024-04-13 04:15] LABS: BASOPHILS % 0.1 % (0.0-1.0); EOSINOPHILS % 0.4 % (0.0-6.0); HEMATOCRIT 28.4 % (34.2-44.1); LYMPHOCYTES # (AUTO) 0.4 (1.0-3.2); MEAN CORPUSCULAR HEMOGLOBIN 33.2 pg (28-32); MEAN CORPUSCULAR HGB CONC 31.7 g/dL (31-35); MEAN CORPUSCULAR VOLUME 104.8 fL (81-99); MONOCYTES # (AUTO) 0.5 (0.2-0.8); MONOCYTES % 6.8 % (4.4-11.3); NEUTROPHILS # (AUTO) 6.9 (2.1-6.9); NEUTROPHILS % 87.4 % (38.7-80.0); PLATELET COUNT 256 x10e3/uL (140-360); RED BLOOD COUNT 2.71 x10e6/uL (3.6-5.1); RED CELL DISTRIBUTION WIDTH 14.4 % (11.7-14.4); WHITE BLOOD COUNT 7.83 x10e3/uL (4.8-10.8)
[2024-04-13 04:28] LABS: ALBUMIN 3.6 g/dL (3.5-5.0); ALBUMIN/GLOBULIN RATIO 1.4 (0.8-2.0); ANION GAP 13.6 mmol/L (8-16); BILIRUBIN,TOTAL 0.5 mg/dL (0.2-1.2); CALCIUM 9.1 mg/dL (8.4-10.2); CREATININE, SERUM 1.2 mg/dL (0.57-1.11); POTASSIUM 3.6 mmol/L (3.5-5.1); TOTAL PROTEIN 6.2 g/dL (6.5-8.1)
[2024-04-13 04:34] LABS: TROPONIN I 0.049 ng/mL (0-0.300)
[2024-04-13] MEDS: SODIUM CHLORIDE 0.9% 1000ML 1,000 ML IV STA ×2 (04:38→06:33)
[2024-04-13] MEDS: ACETAMINOPHEN 325 MG TAB PO STA (04:39)
[2024-04-13 05:03] LABS: CORONAVIRUS COVID-19 AG NEGATIVE (NEGATIVE); INFLUENZA A AG NEGATIVE (NEGATIVE); INFLUENZA B AG NEGATIVE (NEGATIVE)
[2024-04-13] MEDS ORDERED: ALBUTEROL/IPRATROPIUM 3 ML NEB NEB PRN (09:00)
[2024-04-13] MEDS ORDERED: ONDANSETRON HCL INJ 2MG/ML 2ML 2 MG/ML VIAL IV PRN (09:00)
[2024-04-13] MEDS ORDERED: GUAIFENESIN/DEXTROMETHORPHAN LIQD 5 ML UDC NG PRN (09:00)
[2024-04-13] MEDS ORDERED: MELATONIN 3 MG TAB PO PRN (09:00)
[2024-04-13] MEDS: SODIUM CHLORIDE 0.9% 1000ML 1,000 ML IV SCH (09:35)
[2024-04-13] MEDS: PANTOPRAZOLE SOD 40 MG TABEC PO SCH (09:36)
[2024-04-13] MEDS: LORATADINE 10 MG TAB PO SCH (09:36)
[2024-04-13] MEDS: DOCUSATE SODIUM 100 MG CAP PO PRN (09:36)
[2024-04-13] MEDS: POLYETHYLENE GLYCOL 3350 17 GM PACK PO SCH (09:36)
[2024-04-13] MEDS: FERROUS SULFATE 325 MG TAB PO SCH (09:36)
[2024-04-13] MEDS: FOLIC ACID 1 MG TAB PO SCH (09:36)
[2024-04-13] MEDS: ASPIRIN 81 MG CHEW TAB PO SCH (09:36)
[2024-04-13] MEDS: BENZONATATE 100 MG CAP PO SCH (09:36)
[2024-04-13] MEDS: SENNA-S TABLET PO SCH (09:36)
[2024-04-13] MEDS: FLUOXETINE HCL 20 MG CAP PO SCH (10:07)
[2024-04-13 15:59] LABS: TROPONIN I 0.02 ng/mL (0-0.300)
[2024-04-13] MEDS: ENOXAPARIN SOD INJ 40 MG/0.4 ML SYR SC SCH (16:35)
[2024-04-13] MEDS: GABAPENTIN 300 MG CAP PO SCH (21:14)
[2024-04-13] MEDS: ATORVASTATIN 20 MG TAB PO SCH (21:14)
[2024-04-14] VITALS (10 sets, daily range): BP systolic 118–150; BP diastolic 53–80; PULSE 70–98; RESP 16–21; TEMP 98.4–100; O2SAT 95–99
[2024-04-14] MEDS: SODIUM CHLORIDE 0.9% 1000ML 1,000 ML IV SCH
[2024-04-14] MEDS: LEVOTHYROXINE SODIUM 50 MCG TAB PO SCH (05:27)
[2024-04-14 09:26] LABS: BASOPHILS # (AUTO) 0.1 (0.0-0.1); BASOPHILS % 0.4 % (0.0-1.0); EOSINOPHILS # (AUTO) 0.2 (0.0-0.4); LYMPHOCYTES # (AUTO) 0.9 (1.0-3.2); MEAN CORPUSCULAR HGB CONC 31.3 g/dL (31-35); MEAN CORPUSCULAR VOLUME 105.6 fL (81-99); MONOCYTES # (AUTO) 0.4 (0.2-0.8); MONOCYTES % 3.5 % (4.4-11.3); NEUTROPHILS # (AUTO) 9.6 (2.1-6.9); NEUTROPHILS % 85.6 % (38.7-80.0); PLATELET COUNT 274 x10e3/uL (140-360); RED BLOOD COUNT 3.03 x10e6/uL (3.6-5.1); WHITE BLOOD COUNT 11.23 x10e3/uL (4.8-10.8)
[2024-04-14 09:50] LABS: TROPONIN I 0.007 ng/mL (0-0.300)
[2024-04-14 09:55] LABS: ALBUMIN 3.2 g/dL (3.5-5.0); ALBUMIN/GLOBULIN RATIO 1.1 (0.8-2.0); ANION GAP 13.1 mmol/L (8-16); BILIRUBIN,TOTAL 0.6 mg/dL (0.2-1.2); CALCIUM 9.1 mg/dL (8.4-10.2); CREATININE, SERUM 0.91 mg/dL (0.57-1.11); POTASSIUM 4.1 mmol/L (3.5-5.1); TOTAL PROTEIN 6.2 g/dL (6.5-8.1)
[2024-04-14] MEDS: ACETAMINOPHEN 325 MG TAB PO PRN (16:35)
[2024-04-15] VITALS (12 sets, daily range): BP systolic 101–164; BP diastolic 69–83; PULSE 61–87; RESP 16–20; TEMP 97.9–99.3; O2SAT 93–99
[2024-04-15 05:21] LABS: ANION GAP 13.1 mmol/L (8-16); CALCIUM 8.9 mg/dL (8.4-10.2); CREATININE, SERUM 0.75 mg/dL (0.57-1.11); POTASSIUM 4.1 mmol/L (3.5-5.1)
[2024-04-15] MEDS ORDERED: ONDANSETRON HCL 4 MG ORAL DISINTEGRATING TAB PO PRN (07:30)
[2024-04-16 03:25] VITALS: BP 166/74; PULSE 83; RESP 18; TEMP 99.5; O2SAT 100
[2024-04-16 07:46] VITALS: PULSE 82; RESP 16; O2SAT 96
[2024-04-16] MEDS ORDERED: BENZONATATE100 MG PO (07:53)
[2024-04-16] MEDS ORDERED: CEPHALEXIN500 MG PO (07:53)
[2024-04-16] MEDS ORDERED: ZITHROMAX500 MG PO (07:53)
[2024-04-16 08:46] VITALS: BP 178/84; PULSE 83; RESP 19; TEMP 98.4; O2SAT 97
[2024-04-16 09:38] VITALS: BP 178/84; PULSE 83; RESP 19; TEMP 98.4; O2SAT 97
[2024-04-16 12:04] VITALS: BP 182/75; PULSE 65; RESP 20; TEMP 98.9; O2SAT 100
[2024-04-16 13:11] VITALS: PULSE 81; RESP 16; O2SAT 98
[2024-04-17] MEDS ORDERED: AZITHROMYCIN 250 MG TAB PO SCH (09:00)
== END 2024-04-16 13:15 | disposition home or self-care (01) | DRG 871 ==
LOC: ER 03:49 → ERHOLD 05:22 → MED/SURG2 08:13 → OBSVTOIN 09:01
PROVIDERS: ADMIT Internal Medicine; ATTEND Internal Medicine
DX: A41.9 Sepsis, unspecified organism (principal); J18.9 Pneumonia, unspecified organism; N17.9 Acute kidney failure, unspecified; E87.1 Hypo-osmolality and hyponatremia; I48.20 Chronic atrial fibrillation, unspecified; J44.0 Chronic obstructive pulmonary disease with (acute) lower respiratory infection; J84.10 Pulmonary fibrosis, unspecified; I10 Essential (primary) hypertension; I25.10 Atherosclerotic heart disease of native coronary artery without angina pectoris; D53.9 Nutritional anemia, unspecified; E03.9 Hypothyroidism, unspecified; R53.81 Other malaise; R11.2 Nausea with vomiting, unspecified; K21.9 Gastro-esophageal reflux disease without esophagitis; M79.7 Fibromyalgia; M19.91 Primary osteoarthritis, unspecified site; Z11.52 Encounter for screening for COVID-19; Z98.84 Bariatric surgery status; Z87.891 Personal history of nicotine dependence; Z79.899 Other long term (current) drug therapy; Z79.82 Long term (current) use of aspirin
CPT/HCPCS: 36415; 71045; 80048; 80053; 82550; 83605; 83690; 83880; 84484; 85025; 87040; 93005; 94799; 99285; J1650; J2543; J7030; J7050